=== PATIENT | female | born 1985 | race Hispanic/Latino ===

== ENCOUNTER 2017-02-06 20:14 | Inpatient (IN) ==
[2017-02-06 20:37] LABS: URINE SOURCE VOIDED
[2017-02-06 20:40] LABS: BILIRUBIN URINE NEGATIVE (NEGATIVE); BLOOD URINE NEGATIVE (NEGATIVE); CLARITY SL. CLOUDY (CLEAR); COLOR YELLOW; GLUCOSE URINE NEGATIVE (NEGATIVE); LEUKOCYTES URINE TRACE (NEGATIVE); NITRITE URINE NEGATIVE (NEGATIVE); PH URINE 6.5; PROTEIN URINE 1+(30 mg/dL) mg/dL (NEGATIVE); UROBILINOGEN URINE NORMAL
[2017-02-06] MEDS ORDERED: REGLAN PO ONE (21:57)
[2017-02-06] MEDS ORDERED: AMBIEN PO PRN (21:57)
[2017-02-06] MEDS ORDERED: ZOFRAN IV PRN (21:57)
[2017-02-06] MEDS ORDERED: BRETHINE SUBQ PRN (21:57)
[2017-02-06] MEDS ORDERED: PEPCID PO PRN (21:57)
[2017-02-06] MEDS ORDERED: PEPCID PO ONE (21:57)
[2017-02-06] MEDS ORDERED: STADOL IV PRN ×3 (21:57)
[2017-02-06] MEDS ORDERED: PEPCID IV PRN (21:57)
[2017-02-06] MEDS ORDERED: AMPICILLIN 2 GM/NS 2 GM/100 ML IVPB IV ONE (21:57)
[2017-02-06] MEDS ORDERED: TYLENOL PO PRN (21:57)
[2017-02-06] MEDS ORDERED: KEFZOL 1 GM/D5W 1 GM/50 ML IVPB IV PRN (21:57)
[2017-02-06] MEDS: LR 1,000 ML IV ONE (22:15)
[2017-02-06 22:34] LABS: MANUAL DIFF NEEDED? NO
[2017-02-06 22:45] LABS: BASO% 0.1 % (0.0-0.8); EOS# 0.18 X1000 (0.0-0.7); EOS% 2.6 % (0.0-10.0); HEMATOCRIT 32.5 % (37.0-47.0); HEMOGLOBIN 10.4 g/dL (12.0-16.0); IMM GRAN# 0.02 X1000 (0.0-0.04); IMM GRAN% 0.3 % (0.0-0.5); LYMPH# 2.46 X1000 (1.2-3.4); LYMPH% 35.5 % (20.5-51.1); MCH 25.7 PG (27-31); MCV 80.2 FL (81-99); MONO# 0.43 X1000 (0.11-0.59); MONO% 6.2 % (1.7-9.3); MPV 11.8 FL (7.4-10.4); NEUT% 55.3 % (42.2-75.2); PLT 195 X1000 (130-400); RBC 4.05 XMIL (4.2-5.4)
[2017-02-07] MEDS ORDERED: CYTOTEC PO ONE ×3 (02:00→06:48)
[2017-02-07] MEDS: LR 1,000 ML IV ONE (02:03)
[2017-02-07] MEDS: AMPICILLIN 1 GM/NS 1 GM/50 ML IVPB IV SCH ×3 (02:03→11:05)
[2017-02-07] MEDS ORDERED: LR 1,000 ML IV SCH (02:50)
[2017-02-07] MEDS ORDERED: PITOCIN 30 UNITS/LR 30 UNITS/500 ML IV.SOLN IV SCH (06:00)
[2017-02-07] MEDS ORDERED: XYLOCAINE-MPF 1% INJ ONE (07:39)
[2017-02-07] MEDS ORDERED: MINERAL OIL PO ONE (07:39)
[2017-02-07] MEDS ORDERED: PITOCIN 20 UNITS/LR 20 UNITS/1,000 ML IV.SOLN IV SCH ×2 (12:50→12:55)
[2017-02-07] MEDS ORDERED: AMBIEN PO PRN (12:55)
[2017-02-07] MEDS ORDERED: MINERAL OIL PO PRN (12:55)
[2017-02-07] MEDS ORDERED: CYTOTEC PO PRN (12:55)
[2017-02-07] MEDS ORDERED: BENADRYL IV PRN (12:55)
[2017-02-07] MEDS ORDERED: PITOCIN 30 UNITS/LR 30 UNITS/500 ML IV.SOLN IV ONE (12:55)
[2017-02-07] MEDS ORDERED: PERI MEDS (DERMOPLAST/NUPERCAINAL/TUCKS) MISC PRN (12:55)
[2017-02-07] MEDS ORDERED: NORCO-5 PO PRN (12:55)
[2017-02-07] MEDS ORDERED: BENADRYL PO PRN (12:55)
[2017-02-07] MEDS ORDERED: PITOCIN IM PRN (12:55)
[2017-02-07] MEDS ORDERED: M-M-R II VACCINE SUBQ ONE (12:55)
[2017-02-07] MEDS ORDERED: HYDROXYZINE PO PRN (12:55)
[2017-02-07] MEDS ORDERED: NORCO-10 PO PRN (12:55)
[2017-02-07] MEDS ORDERED: XYLOCAINE-MPF 1% INJ PRN (12:55)
[2017-02-07] MEDS ORDERED: HYDROXYZINE IM PRN (12:55)
[2017-02-07] MEDS ORDERED: BOOSTRIX VACCINE IM ONE (12:55)
[2017-02-07] MEDS: MOTRIN PO PRN (20:29)
[2017-02-07] MEDS: PERICOLACE PO SCH (20:29)
[2017-02-08 06:03] LABS: HEMATOCRIT 29.8 % (37.0-47.0); HEMOGLOBIN 9.6 g/dL (12.0-16.0); MCH 25.9 PG (27-31); MCHC 32.2 g/dL (33-37); MCV 80.5 FL (81-99); MPV 11.9 FL (7.4-10.4); RBC 3.7 XMIL (4.2-5.4)
[2017-02-08] MEDS: MOTRIN PO PRN (08:59)
--- NOTE | 2017-02-08 14:19 | PROGRESS NOTE ---
DATE: 02/08/2017 SUBJECTIVE: She is day 1. No care. Vaginal delivery. She communicates no complaints. Vital signs are stable. She is afebrile. OBJECTIVE: General: Physical examination within normal limits. LABS: Hemoglobin and hematocrit of 9.6/29.8. DISPOSITION: Expect routine and discharge in the morning. cc: MD Laura Walls MD
[2017-02-08] MEDS: PERICOLACE PO SCH (20:50)
[2017-02-09 07:25] VITALS: BP 117/74
== END 2017-02-09 15:30 | disposition home or self-care (01) ==
LOC: P.NBC 20:14 → P.LD 20:16 → P.NBC 21:26 → P.LD 21:27 → P.WC 02-07 15:41
PROVIDERS: ADMIT Obstetrics & Gynecology; ATTEND Obstetrics & Gynecology

== ENCOUNTER 2019-10-10 19:30 | Inpatient (IN) ==
--- NOTE | 2019-10-10 19:58 | PROVIDER DOCUMENTATION ---
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 est gest age by this date 17 wks. she reports mild cramping. no ob or prental care. this info was obtained through spouse at her request. denies fever, chills, sob, cp, n/v/d Does patient report she is ?: Yes Location of complaint: reports: suprapubic Radiation: reports: none Quality of Pain: reports: cramping Severity in ED: reports: mild Onset/Duration: reports: 1-3 hours ago Timing: reports: still present Vaginal Symptoms: reports: passing clots/tissue Vaginal Bleeding Amount: Copious/Excessive Urinary Symptoms: reports: no symptoms Related Symptoms: reports: pelvic pain, vaginal bleeding Leakage of Fluid: uncertain Sexual intercourse history: reports: Single Partner Contraception: reports: none Modifying Factors: improves with: nothing Associated Symptoms: reports: denies symptoms Similar Symptoms Previously?: No Recently seen or treated by another doctor?: No - LMP/ History LMP: 06/07/19 : 4 Para: 3 Care: none Review of Systems - Adult - REVIEW OF SYSTEMS - ADULT Constitutional: reports: no symptoms reported. denies: see HPI, chills, fever, fatique, night sweats, weight gain, weight loss, other Eyes: reports: no symptoms reported. denies: see HPI, discharge, dry eyes, decreased vision, blurred vision, double vision, eye pain, redness, other Ears, Nose, Mouth & Throat: reports: no symptoms reported. denies: see HPI, ear discharge, ear pain, hearing loss, tinnitus, epistaxis, sinus problem, nose pain, loose teeth, mouth/dental pain, mouth swelling, hoarseness, throat pain, throat swelling, other Cardiovascular: reports: no symptoms reported. denies: see HPI, chest pain, edema, heart murmur, irregular heart rate, orthopnea, palpitations, poor circulation, PND, syncope, other Respiratory: reports: no symptoms reported. denies: see HPI, chronic cough, cough, dyspnea on exertion, excessive sputum production, hemoptysis, pleurisy, shortness of breath, wheezing, other Gastrointestinal: reports: see HPI. denies: no symptoms reported, abdominal pain, hematemesis, constipation, diarrhea, difficulty swallowing, frequent heartburn, nausea, poor appetite, rectal bleeding, vomiting, other Genitourinary: reports: see HPI. denies: no symptoms reported, dysuria, discharge, frequency, flank pain, frequent UTI's, hematuria, hesitency, incontinence, urinary retention, urgency, other Musculoskeletal: reports: no symptoms reported. denies: see HPI, bone pain, back pain, frequent leg cramps, joint pain, joint swelling, muscle aches, muscle weakness, neck pain, other Integumentary: reports: no symptoms reported. denies: see HPI, hives, hair loss, itching, mole changes, nail changes, rash, skin sores/ulcer, skin thickening, other Neurological: reports: no symptoms reported. denies: see HPI, ataxia, dizziness/vertigo, headache/migraines, loss of balance, numbness, paresthesia, seizure, slurred speech, syncope, tremors, other Psychiatric: reports: no symptoms reported. denies: see HPI, anxiety, anti- depressant use, alcohol/drug dependence, depression, emotional problems, insomnia, panic attacks, suicidal thoughts, other Endocrine: reports: no symptoms reported. denies: see HPI, change in skin pigment, excessive sweating, goiter, cold intolerance, heat intolerance, increased hunger, increased thirst, polyuria, other Hematologic/Lymphatic: reports: no symptoms reported. denies: see HPI, blood clots, easy bruising, low blood count, lymphedema, prolonged bleeding, swollen lymph nodes, transfusions, other Allergic/Immunologic: reports: no symptoms reported. denies: see HPI, allergic reactions, allergic rhinitis, asthma, eczema, food allergy, frequent infections, hay fever, hives, positive PPD, urticaria, other Past History - Adult - PAST MEDICAL HISTORY-ADULT Review of Records: reports: Nursing Assessment Review, Social history reviewed & non-contributory. Major Childhood Illnesses: reports: denies history Cardiovascular: reports: denies history Respiratory: reports: denies history Gastrointestinal: reports: denies history Obstetrical/Gynecological: reports: denies history Genitourinary: reports: denies history Musculoskeletal: reports: denies history Neurological: reports: denies history Endocrine/Immune: reports: denies history Other Conditions: reports: denies history - PRIOR SURGERIES/PROCEDURES Surgical/Procedure History: reports: none - PRIOR HOSPITALIZATIONS Prior Hospitalizations: reports: none - IMMUNIZATION STATUS Childhood Immunizations: NUTD Flu Vaccine: NUTD - FAMILY HISTORY Family History: reviewed, not pertinent Physical Exam-General - PHYSICAL EXAM-ADULT Initial Vital Signs Reviewed: Yes - CONSTITUTIONAL General Appearance: alert, no apparent distress - EYES Eyes: PERRL/EOMI, pink conjunctivae - HEAD, EARS, NOSE, MOUTH & THROAT HENMT: normocephalic/atraumatic, moist mucous membranes, normal ENT inspection - NECK Neck: non-tender, full range of motion, supple - RESPIRATORY Respiratory: chest non-tender, lungs clear, normal breath sounds, no pleuratic chest pain, no respiratory distress, no accessory muscle use - CARDIOVASCULAR Cardiovascular: normal peripheral pulses, regular rate, rhythm, no edema - GASTROINTESTINAL (ABDOMEN) Abdominal Exam: normal bowel sounds, soft, tenderness - GENITOURINARY Female Genitalia/Pelvic Exam: active bleeding (heavy active bleeding) - LYMPHATIC Lymphatic: no adenopathy - MUSCULOSKELETAL Back Exam: normal inspection, no CVA tenderness, no vertebral tenderness Extremity: normal range of motion, non-tender, normal gait Peripheral Pulses: radial (R): 2+, radial (L): 2+ - SKIN Integumentary: normal color, normal turgor, warm/dry - NEUROLOGIC Neurologic: grossly normal - PSYCHIATRIC Psych/Mental Status: normal mood/affect, oriented x 3 Progress - PLAN OF CARE/RESULTS Progress/Plan/Lab Results: Vital Signs - 8 hr 10/10/19 19:34 Temperature 97.4 F L Pulse Rate 86 Respiratory Rate 16 Blood Pressure 104/64 O2 Sat by Pulse Oximetry 99 Laboratory Results - last 24 hr 10/10/19 10/10/19 10/10/19 19:55 19:55 19:55 WBC 7.76 RBC 4.41 Hgb 11.9 L Hct 36.3 L MCV 82.3 MCH 27.0 MCHC 32.8 L RDW Std Deviation 13.9 Plt Count 281 MPV 11.3 H Immature Gran % (Auto) 0.3 Neut % (Auto) 63.5 Lymph % (Auto) 29.9 [place] % (Auto) 4.4 Eos % (Auto) 1.8 Baso % (Auto) 0.1 Immature Gran # (Auto) 0.02 Neut # (Auto) 4.93 Lymph # (Auto) 2.32 [place] # (Auto) 0.34 Eos # (Auto) 0.14 Baso # (Auto) 0.01 PT 13.4 INR 0.97 PTT (Actin FS) 32.6 Sodium 139 Potassium 4.1 Chloride 104 Carbon Dioxide 23 L Anion Gap 12 BUN 6 L Creatinine 0.4 L Estimated GFR/1.73 m2 > 60 BUN/Creatinine Ratio 15 Glucose 100 Calculated Osmolality 275 Calcium 8.9 Total Bilirubin 0.40 AST 21 ALT 20 Alkaline Phosphatase 70 Total Protein 8.2 Albumin 4.2 Globulin 4.0 Albumin/Globulin Ratio 1.0 Ser , Semi-Qnt Blood Type Antibody Screen 10/10/19 10/10/19 19:55 19:55 WBC RBC Hgb Hct MCV MCH MCHC RDW Std Deviation Plt Count MPV Immature Gran % (Auto) Neut % (Auto) Lymph % (Auto) [place] % (Auto) Eos % (Auto) Baso % (Auto) Immature Gran # (Auto) Neut # (Auto) Lymph # (Auto) [place] # (Auto) Eos # (Auto) Baso # (Auto) PT INR PTT (Actin FS) Sodium Potassium Chloride Carbon Dioxide Anion Gap BUN Creatinine Estimated GFR/1.73 m2 BUN/Creatinine Ratio Glucose Calculated Osmolality Calcium Total Bilirubin AST ALT Alkaline Phosphatase Total Protein Albumin Globulin Albumin/Globulin Ratio Ser , Semi-Qnt 1533.0 Blood Type O POSITIVE Antibody Screen NEGATIVE Orders Category Date Time Status Saline Loc NOW Care 10/10/19 19:42 Active US OBS COMPLETE > 14 WKS [US] Stat Exams 10/10/19 19:44 Completed CBC WITH ELECTRONIC DIFF [HEME] Stat Lab 10/10/19 19:55 Completed COMPREHENSIVE METABOLIC PANEL [CHEM] Stat Lab 10/10/19 19:55 Completed PROTIME WITH INR [COAG] Stat Lab 10/10/19 19:55 Completed PTT [COAG] Stat Lab 10/10/19 19:55 Completed QUANT TEST Stat Lab 10/10/19 19:55 Completed TYPE & SCREEN [BBK] Stat Lab 10/10/19 19:55 Completed 0.9% Sodium Chloride Inj [Ns] 1,000 ml Med 10/10/19 21:00 Active IV 999 mls/hr Result Diagrams: 10/10/19 19:55 10/10/19 19:55 - REASSESSMENT Reassessment #1 Time Reassessed: 21:02 Status: unchanged (PT HAS BLED THROUGH 3 HEAVY PADS SINCE ARRIVAL, BLEEDING HAS SLOWED DUE TO PATIENT LYING DOWN. 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 The endometrial stripe measures almost 5 mm. There is no evidence of free fluid or adnexal masses. There is an inhomogeneous collection of echogenic and hypoechoic material particularly in the fundus of the endometrial canal. This measures in excess of 3.7 cm. No recognizable fetus or gestational sac is present. This is probably retained membranes and blood clots. There are no previous studies for this . IMPRESSION: No e vidence of viable intrauterine gestation. The possibility of an incomplete spontaneous is suggested. Electronically signed by Yg Zelaya 10/10/2019 9:03 PM 10/10/192102 Interpreting Physician: Yg Zelaya MD Dictated Date/Time: 10/10/192100 cc: Kerry Peña; None,PCP) - CONSULTS/PCP/HOSPITALIST Notification #1 *Consult/PCP/Hospitalist*: DR. GRAY SENT TO L&D NOW Time Discussed: :19 Consult Disposition: Admit Departure - Departure Date of Disposition Decision: 10/10/19 Time of Disposition Decision: 21:19 DIAGNOSIS: Incomplete spontaneous Disposition: ADMITTED INPATIENT 09 Certified Medical Emergency: Emergent Condition: Stable Referrals and Follow-Ups: None,PCP [Primary Care Provider] - - Critical Care Note This patient required my direct & personal management of CC.: No Attestation - Physician/ LYLY Attestation Patient care was provided by Advanced Practice Provider:: Yes Advanced Practice Provider:: Kerry Peña Advanced Practice Provider documentation review:: The Mid-level provider documentation, treatment plan and medical decision making was reviewed by the physician who agrees with all treatment and medical decision making by the MLP. The physician spent face to face time with patient:: No Advanced Practice Provider documentation review:: Supervising physician onsite and consulted in the evaluation and care of this patient. The physician did not have a face to face encounter with the patient.
[2019-10-10 20:20] LABS: BASO# 0.01 X1000 (0.0-0.2); BASO% 0.1 % (0.0-0.8); EOS# 0.14 X1000 (0.0-0.7); EOS% 1.8 % (0.0-10.0); HEMATOCRIT 36.3 % (37.0-47.0); HEMOGLOBIN 11.9 g/dL (12.0-16.0); IMM GRAN# 0.02 X1000 (0.0-0.04); IMM GRAN% 0.3 % (0.0-0.5); LYMPH# 2.32 X1000 (1.2-3.4); LYMPH% 29.9 % (20.5-51.1); MCHC 32.8 g/dL (33-37); MCV 82.3 FL (81-99); MONO# 0.34 X1000 (0.11-0.59); MONO% 4.4 % (1.7-9.3); MPV 11.3 FL (7.4-10.4); NEUT# 4.93 X1000 (1.4-6.5); NEUT% 63.5 % (42.2-75.2); PLT 281 X1000 (130-400); RBC 4.41 XMIL (4.2-5.4); RDW 13.9 % (11.5-14.5); WBC 7.76 X1000 (4.8-10.8)
[2019-10-10 20:37] LABS: INR 0.97; PROTIME 13.4 Seconds (11.0-16.0)
[2019-10-10 20:38] LABS: PTT 32.6 Seconds (22.3-41.8)
[2019-10-10 20:39] LABS: AGAP 12; ALBUMIN 4.2 g/dL (3.5-5.0); ALKALINE PHOSPHATASE 70 U/L (32-104); BUN 6 mg/dL (8-22); CALCIUM 8.9 mg/dL (8.8-10.2); CHLORIDE 104 mmol/L (98-107); COSMO 275; CREATININE 0.4 mg/dL (0.5-0.9); ESTIMATED GFR > 60; GLUCOSE 100 mg/dL (70-104); GOT 21 U/L (10-30); GPT 20 U/L (10-36); POTASSIUM 4.1 mmol/L (3.5-5.1); SODIUM 139 mmol/L (136-145); TCO2 23 mmol/L (25-35); TOTAL PROTEIN 8.2 g/dL (6.3-8.3)
[2019-10-10] MEDS ORDERED: NS 1,000 ML IV ONE (21:00)
--- NOTE | 2019-10-10 21:07 | Diag Imaging Result Doc PS360 ---
EXAM: US OBS COMPLETE > 14 WKS 10/10/2019 HISTORY: bleeding in ; poc TECHNIQUE: Transabdominal scan COMMENT: There is no recognizable gestational sac. The endometrial stripe measures almost 5 mm. There is no evidence of free fluid or adnexal masses. There is an inhomogeneous collection of echogenic and hypoechoic material particularly in the fundus of the endometrial canal. This measures in excess of 3.7 cm. No recognizable fetus or gestational sac is present. This is probably retained membranes and blood clots. There are no previous studies for this . IMPRESSION: No evidence of viable intrauterine gestation. The possibility of an incomplete spontaneous is suggested. Electronically signed by Yg Zelaya 10/10/2019 9:03 PM
[2019-10-10] MEDS ORDERED: METHERGINE IM ONE (22:10)
[2019-10-10] MEDS ORDERED: DOXYCYCLINE 200 MG in NS 250 ML IV ONE (22:10)
[2019-10-10] MEDS ORDERED: CYKLOKAPRON 1,000 MG in NS 100 ML IV ONE (22:10)
[2019-10-10] MEDS ORDERED: HEMABATE IM ONE (22:10)
[2019-10-10] MEDS ORDERED: CYTOTEC SCH (22:15)
[2019-10-10] MEDS ORDERED: FENTANYL ONE (22:22)
[2019-10-10] MEDS ORDERED: DIPRIVAN 1% ONE (22:22)
[2019-10-10] MEDS ORDERED: HEMABATE ONE ×2 (22:42→22:44)
[2019-10-10] MEDS ORDERED: METHERGINE ONE (22:42)
[2019-10-11] MEDS ORDERED: XYLOCAINE-MPF 2% ONE (00:04)
[2019-10-11] MEDS ORDERED: ZOFRAN ONE (00:04)
[2019-10-11] MEDS ORDERED: NEO-SYNEPHRINE ONE (00:04)
[2019-10-11] MEDS ORDERED: QUELICIN (DOSE) ONE (00:04)
[2019-10-11] MEDS ORDERED: SODIUM CHLORIDE 0.9% 10 ML ONE (00:04)
[2019-10-11] MEDS ORDERED: DECADRON ONE (00:04)
[2019-10-11] MEDS ORDERED: NS 1,000 ML ONE (00:10)
[2019-10-11] MEDS ORDERED: SODIUM CHLORIDE 0.9% INJ PRN (00:46)
[2019-10-11] MEDS ORDERED: ZOFRAN PO PRN (00:46)
[2019-10-11] MEDS ORDERED: PERCOCET-5 PO PRN (00:46)
[2019-10-11] MEDS ORDERED: PHENERGAN IV PRN (00:46)
[2019-10-11] MEDS ORDERED: PERCOCET-10 PO PRN (00:46)
[2019-10-11 00:57] LABS: BASO# 0.01 X1000 (0.0-0.2); BASO% 0.1 % (0.0-0.8); EOS# 0.06 X1000 (0.0-0.7); EOS% 0.7 % (0.0-10.0); HEMATOCRIT 26.2 % (37.0-47.0); HEMOGLOBIN 8.5 g/dL (12.0-16.0); IMM GRAN# 0.03 X1000 (0.0-0.04); IMM GRAN% 0.3 % (0.0-0.5); LYMPH# 1.22 X1000 (1.2-3.4); LYMPH% 13.7 % (20.5-51.1); MCH 27.3 PG (27-31); MCHC 32.4 g/dL (33-37); MCV 84.2 FL (81-99); MONO% 2.2 % (1.7-9.3); MPV 11.3 FL (7.4-10.4); NEUT# 7.41 X1000 (1.4-6.5); PLT 199 X1000 (130-400); RBC 3.11 XMIL (4.2-5.4); RDW 13.5 % (11.5-14.5); WBC 8.93 X1000 (4.8-10.8)
[2019-10-11] MEDS: NS 1,000 ML IV SCH ×2 (01:00→09:42)
[2019-10-11 06:37] LABS: HEMATOCRIT 24.9 % (37.0-47.0); HEMOGLOBIN 8.1 g/dL (12.0-16.0); LYMPH# 0.79 X1000 (1.2-3.4); LYMPH% 11.7 % (20.5-51.1); MCH 27.5 PG (27-31); MCHC 32.5 g/dL (33-37); MCV 84.4 FL (81-99); MONO# 0.07 X1000 (0.11-0.59); MPV 11.8 FL (7.4-10.4); NEUT% 87.3 % (42.2-75.2); PLT 220 X1000 (130-400); RBC 2.95 XMIL (4.2-5.4); RDW 13.6 % (11.5-14.5); WBC 6.76 X1000 (4.8-10.8)
--- NOTE | 2019-10-11 06:37 | HISTORY AND PHYSICAL ---
ADMITTING PHYSICIAN: Chana Saravia DO CHIEF COMPLAINT: Vaginal bleeding. HISTORY OF PRESENT ILLNESS: The patient is a 34-year-old G5, P4, 0-0-4 at 17 weeks and 6 days by an uncertain last menstrual period, who presented to [facility] with complaint of heavy bleeding. Per the nurse practitioner in the emergency room, the patient filled up four large pads in 2 hours with heavy vaginal bleeding. An ultrasound performed at [facility] showed no recognizable gestational sac in the endometrial stripe that measures almost 5 cm. Also, it showed an inhomogeneous collection of echogenic and hypoechoic material particularly in the fundus that measures 3.7 cm concerning for an incomplete spontaneous . No recognizable fetus or gestational sac was present on ultrasound. The patient was subsequently transferred to [facility] for a higher level of care and possible surgical intervention. She has had no care this . Upon arrival, the patient had soaked a pad with approximately 250 mL of bright red blood, and a large clot was noted at her vaginal introitus. Upon interview of the patient, her blood pressure was noted to be 70s to 80s over 40s to 50s. A decision was made to proceed emergently to the operating room for pelvic exam under anesthesia, and suction dilation and curettage for treatment of the incomplete spontaneous . An seismic interpreter was used for the entire interview using the [place] dialect. OBSTETRIC HISTORY: She has a history of 4 spontaneous vaginal deliveries all at full term. She denies any complications with the new . PAST MEDICAL HISTORY: Denies. MEDICATIONS: Denies. ALLERGIES: No known drug allergies. SURGICAL HISTORY: Denies. SOCIAL HISTORY: She denies tobacco, alcohol, or drug use. FAMILY HISTORY: She denies. VITAL SIGNS: Temperature 98.7 degrees, heart rate 68, respiratory rate 18, blood pressure 80/54, and oxygen saturation 100% on room air. LABORATORY DATA: White blood cell count 7.7, hemoglobin 11.9, hematocrit 36.3, and platelets 281,000. Sodium 139, potassium 4.1, chloride 104, CO2 23, BUN 6, creatinine 0.4, and blood sugar 100. PT 13.4, INR 0.97, PTT 32.6. AST 21 and ALT 20. Beta HCG 1533. Blood type O positive, negative antibody screen. Transvaginal ultrasound with no recognizable gestational sac. Endometrial stripe measures almost 5 cm. There is no evidence of free fluid or adnexal masses. There is an in homogeneous collection of echogenic hypoechoic material particularly in the fundus of the endometrial canal. This measures in excess of 3.7 cm. No recognizable fetus or gestational sac is present. This is probably retained membranes and clots. There are no previous studies for this prior . Impression: No evidence of viable intrauterine gestation. The possibility of an incomplete suggested. PHYSICAL EXAM: GENERAL:alert, pale HEART: regular rate, rhythm LUNGS:clear to auscultation, no respiratory distress ABDOMEN: soft, gravid, NT : large clot noted at vaginal introitus EXTREMITIES: no clubbing, cyanosis, or edema ASSESSMENT AND PLAN: A 34-year-old G5, P4, 0-0-4 at 17 weeks and 6 days by uncertain LMP, who presented with an incomplete SAB and heavy vaginal bleeding with hemodynamic instability. 1. We will proceed emergently to the operating room for a pelvic exam under anesthesia, and suction dilation and curettage and all other indicated procedures. 2. [employer] seismic interpreter used for the interview. Risks, benefits, and alternatives were discussed with the patient. Consent signed. 3. We will type and cross for 2 units, and have uterotonics available for possibility of heavy bleeding during D and C. 4. We will treat with doxycycline 200 mg IV x1 for antibiotic prophylaxis. 5. We will plan to admit patient to Labor and Delivery after procedure is performed. [facility]EROleksandr
[2019-10-11 06:38] LABS: PTT 32.1 Seconds (22.3-41.8)
[2019-10-11 07:19] LABS: AGAP 8; ALBUMIN 2.8 g/dL (3.5-5.0); ALKALINE PHOSPHATASE 54 U/L (32-104); BUN 4 mg/dL (8-22); CALCIUM 7.3 mg/dL (8.8-10.2); CHLORIDE 111 mmol/L (98-107); COSMO 275; CREATININE 0.4 mg/dL (0.5-0.9); ESTIMATED GFR > 60; GLUCOSE 147 mg/dL (70-104); GOT 17 U/L (10-30); GPT 15 U/L (10-36); POTASSIUM 3.6 mmol/L (3.5-5.1); SODIUM 138 mmol/L (136-145); TCO2 19 mmol/L (25-35); TOTAL PROTEIN 5.6 g/dL (6.3-8.3)
--- NOTE | 2019-10-11 07:32 | OPERATIVE NOTE ---
PROCEDURE DATE: 10/10/2019 PREOPERATIVE DIAGNOSES: 1. A 34-year-old G5, P4, 0-0-4 at approximately 17 weeks and 6 days. Last menstrual period with an incomplete SAB. 2. Heavy vaginal bleeding. 3. Hemodynamic instability. 4. No care. POSTOPERATIVE DIAGNOSES: 1. A 34-year-old G5, P4, 0-0-4 at approximately 17 weeks and 6 days. Last menstrual period with an incomplete SAB. 2. Heavy vaginal bleeding. 3. Hemodynamic instability. 4. No care. SURGEON: Chana Saravia DO TRAVERSE ROD ASSEMBLER: Eryn Lucas DO PROCEDURE PERFORMED: 1. Pelvic exam under anesthesia. 2. Suction dilation and curettage. FINDINGS: Cervix approximately 2 cm dilated with large clot and products visualized in vaginal vault. Products of conception visualized on bedside ultrasound. ESTIMATED BLOOD LOSS: 500 mL. IV FLUIDS: 1500 mL. URINE OUTPUT: 400 mL. SPECIMEN: Products of conception. DESCRIPTION OF PROCEDURE: The patient was taken to the operating room where general anesthesia was found to be adequate. She was then prepped and draped in the normal sterile fashion in the dorsal lithotomy position with feet in candy-cane stirrups. A large clot was noted at the vaginal introitus, and this was removed manually. Bimanual exam was performed. Weighted speculum was placed in the vagina, and a right-angle retractor used to visualize the cervix. The cervix was approximately 2 cm dilated, and the anterior lip of the cervix was grasped with a Ring forceps. Next, a 12 mm curved suction curette was placed through the cervix and advanced to the fundus, and a moderate amount of tissue was obtained. Multiple passes were made with the suction curette. A smooth curettage was then performed and a good uterine cry heard on all sides. Abdominal ultrasound was then performed with no products of conception visualized on ultrasound after curettage. Hemostasis was noted. All vaginal instruments were removed. All sponge, lap and needle counts were correct x2. She received doxycycline for antibiotic prophylaxis. She was taken to the recovery room in stable condition. [facility]
[2019-10-11 07:42] LABS: LYMPHS 11 % (21-51); MONO 2 % (1-9); SEGS 87 % (42-75)
[2019-10-11 10:47] VITALS: BP 80/47
[2019-10-11 13:07] LABS: HEMATOCRIT 23.8 % (37.0-47.0); HEMOGLOBIN 7.9 g/dL (12.0-16.0); MCH 28.2 PG (27-31); MCHC 33.2 g/dL (33-37); MPV 11.9 FL (7.4-10.4); RBC 2.8 XMIL (4.2-5.4); RDW 13.6 % (11.5-14.5); WBC 6.88 X1000 (4.8-10.8)
== END 2019-10-11 15:30 | disposition home or self-care (01) | DRG 779 ==
LOC: P.ED 19:30 → LD 21:48
PROVIDERS: ADMIT Student in an Organized Health Care Education/Training Program; ATTEND Student in an Organized Health Care Education/Training Program